=== PATIENT | female | born 1985 ===

== ENCOUNTER 2017-11-05 08:35 | Inpatient (IN) | payer BC ==
[2017-11-05] MEDS ORDERED: Penicillin G 5 Million Unit Vial IVPB ONE (20:30)
[2017-11-05] MEDS ORDERED: Lactated Ringer's 1,000 ML IV SCH (20:30)
--- NOTE | 2017-11-05 20:31 | OBADHP ---
Datetime: 11/05/2017 20:27 Admit Comment, IP Provider: at 40+weeks er fir inductuion of labor.c/o cts started in am, irrg, no vb, lof,+fm obhx primi pmh den_med pnv all nkda psh den soch de ve /-2 a/p at 40+wek in labor admit to l_d npo/ivf labs cont fabio and efm gbs prophy;axsis anticipate Pelvic Type - PN: Adequate Extremities - PN: Normal Abdomen - PN: Normal Back - PN: Normal Breast - PN: Normal Lungs - PN: Normal Heart - PN: Normal Thyroid - PN: Normal Neurologic - PN: Normal HEENT - PN: Normal General - PN: Normal FHR - Baseline A Provider: 120 Contraction Comments Provider: q1-4 IP Hx Assessment: The History has been Reviewed and is Current Vital Signs Provider: Reviewed; Within Normal Limits IP Chief Complaint: Uterine contractions NICHD Variability Prov Fetus A: Moderate 6-25bpm NICHD Accel Fetus A IP Provider: 15X15 FHR Category Provider Fetus A: Category I Dilatation, Provider: 2 Effacement, Provider: 80 Station, Provider: -2 Genitourinary Exam: Normal DTRs - PN: Normal EGA AdmitDate IP: 40.6 IP Adm Impression: Term, intrauterine ; Active labor IP Admit Plan: Admit to unit; Initiate labor protocol
[2017-11-05] MEDS ORDERED: Nalbuphine 20 mg/ml Inj (1 ml) IVP PRN (20:45)
[2017-11-05 21:06] LABS: BASO % 0.3 % (0.0-2.0); EOS % 0.2 % (0.0-4.0); HEMOGLOBIN 13.3 g/dL (11.0-16.0); LYMPH # 1.8 K/uL (1.0-4.3); MEAN CELL VOLUME 90.7 fL (81.0-99.0); MEAN CORPUSCULAR HEMOGLOBIN 31.2 pg (27.0-31.0); MEAN CORPUSCULAR HGB CONC 34.4 g/dL (33.0-37.0); MEAN PLATELET VOLUME 10.1 fL (7.2-11.7); MONO # 0.6 K/uL (0.0-0.8); MONO % 5.9 % (0.0-10.0); NEUT # 7.6 K/uL (1.8-7.0); NEUT % 75.6 % (50.0-75.0); NRBC % 0.1 % (0.0-2.0); RBC 4.25 Mil/uL (3.80-5.20); RED CELL DISTRIBUTION WIDTH 17.3 % (11.5-14.5); WHITE BLOOD COUNT 10.1 K/uL (4.8-10.8)
[2017-11-05 21:12] VITALS: BMI 23.6
[2017-11-05 21:49] LABS: HEPATITIS B SURFACE AG NEGATIVE (NEGATIVE); SQUAMOUS EPITHIAL 4 /hpf (0-5); URINE BACTERIA OCC (<OCC); URINE BILIRUBIN NEGATIVE (NEGATIVE); URINE BLOOD NEGATIVE (NEGATIVE); URINE CLARITY Hazy (Clear); URINE COLOR Straw (YELLOW); URINE GLUCOSE (UA) NORMAL (Normal); URINE LEUKOCYTE ESTERASE 2+ Leu/uL (Negative); URINE NITRATE NEGATIVE (NEGATIVE); URINE PROTEIN NEGATIVE (NEGATIVE); URINE UROBILINOGEN NORMAL mg/dL (0.2-1.0)
[2017-11-05 22:40] LABS: BLOOD UREA NITROGEN 15 mg/dL (7-17); GFR AFRICAN-AMERICAN > 60; GFR NON-AFRICAN AMERICAN > 60
[2017-11-05 22:41] LABS: ALBUMIN 3.6 g/dL (3.5-5.0); ALT/SGPT 32 U/L (9-52); AST/SGOT 29 U/L (14-36); CALCIUM 8.8 mg/dl (8.6-10.4)
[2017-11-05] MEDS ORDERED: Bupivacaine HCl 0.25% PF (10 ml) Inj ONE (23:25)
[2017-11-05] MEDS ORDERED: Bupivacaine HCl/FentaNYL Cit 100 ML EPI ONE (23:57)
[2017-11-06] MEDS: WATER IV SCH ×2 (00:21→04:24)
[2017-11-06] MEDS: DEXTROSE IV SCH ×2 (00:21→04:24)
[2017-11-06] MEDS: PENICILLIN POTASSIUM MU IV SCH ×2 (00:21→04:24)
--- NOTE | 2017-11-06 06:35 | OBPN ---
Datetime: 11/06/2017 06:32 IP Progress Impression: Normal progression of labor IP Procedures: Sterile Vag Exam FHR - Baseline A Provider: 130 IP Progress Note Comment: pt was seen at be side ve 9/100/0 anticipate NICHD Accel Fetus A IP Provider: 15X15 FHR Category Provider Fetus A: Category I NICHD Variability Prov Fetus A: Moderate 6-25bpm Dilatation, Provider: 9 Effacement, Provider: 100 Station, Provider: 0irrg Datetime: 11/05/2017 20:27 Contraction Comments Provider: q1-4 Vital Signs Provider: Reviewed; Within Normal Limits
[2017-11-06] MEDS ORDERED: Lidocaine 2% Inj (20ml) ONE (07:35)
--- NOTE | 2017-11-06 08:06 | OBDS ---
DELIVERY PERSONNEL Nurse Desk Top Publisher Certified: N/A Delivery Doctor: Amanda Bosch MD Scrub Nurse: N/Mel Hardwood Flooring Specialist: Reshma Singh RN Anesthesiologist: Rudi Hernández MD Circle Edger: N/Mel Resident: Paul MATERNAL INFORMATION Delivery Anesthesia: Epidural Medications in Delivery: Pitocin given after delivery of placenta. Estimated Blood Loss (ml): 200 Placenta Cultured: No Maternal Complications: None RN Comments: Phuong Cheng RN present at delivery. Father of baby and pt.'s mother present in labor room for delivery. Provider Comments: Uncomplicated Spontaneous vaginal delivery of a viable female infant with BW of and APGARS of 9 and 9. 2nd degree laceration repaired with chromic 2-0 under epidural with good flora sis. EBL- 200mls LABOR SUMMARY EDC: 10/30/2017 00:00 No. Babies in Womb: 0 Attempted: No Labor Anesthesia: Epidural LABOR INFORMATION Reason for Induction: Not Applicable; Other Reason for Induction Other: POST DATES Onset of Labor: 11/05/2017 18:00 Complete Dilatation: 11/06/2017 07:20 Cervical Ripening Agents: Cervidil Oxytocin: N/A Group B Beta Strep: Positive Antibiotics # of Doses: 3 Antibiotics Time of Last Dose: 4;30am Steroids Given: None Reason Steroids Not Administered: Not Applicable Other Reason Not Administered: N/A MEMBRANES Membranes Rupture Method: Artificial Rupture of Membranes: 11/06/2017 07:22 Length of Rupture (hrs): 0.32 Amniotic Fluid Color: Clear Amniotic Fluid Amount: Small Amniotic Fluid Odor: Normal STAGES OF LABOR Stage 1 hrs: 13 Stage 1 min: 20 Stage 2 hrs: 0 Stage 2 min: 21 Stage 3 hrs: 0 Stage 3 min: 5 Total Time in Labor hrs: 13 Total Time in Labor min: 46 VAGINAL DELIVERY Episiotomy: None Laceration Extension: Second Degree Laceration Type: Perineal Laceration Repair: Yes Laceration Repair Note: Repaired with 2-0 chromic under epidural anesthesia and with Good cosmesis. Initial Vag Sponge Count: 11 Final Vag Sponge Count: 11 Initial Vag Sharps Count: 1 Final Vag Sharps Count: 1 Sponge Count Correct: Yes; Vaginal Sweep Performed Sharps Count Correct: Yes BABY A INFORMATION Infant Delivery Date/Time: 11/06/2017 07:41 Method of Delivery: Vaginal Born in Route : No : N/A Forceps: N/A Vacuum Extraction: N/A Shoulder Dystocia : No SHOULDER DYSTOCIA BABY A Delivery Date/Time: 11/06/2017 07:41 PRESENTATION/POSITION BABY A Presentation: Cephalic Cephalic Presentation: Vertex Vertex Position: Right Occipital Posterior Breech Presentation: N/A PLACENTA INFORMATION BABY A Placenta Delivery Time : 11/06/2017 07:46 Placenta Method of Delivery: Spontaneous Placenta Status: Delivered SCORES BABY A Heart Rate 1 min: >100 bpm Resp Effort 1 min: Good Cry Reflex Irritability 1 min: Cough or Sneeze or Pulls Away Muscle Tone 1 min: Active Motion Color 1 min: Body Sunrise, Extremities Blue Resuscitation Effort 1 min: Tactile Stimulation SCORE 1 MIN: 9 Heart Rate 5 min: >100 bpm Resp Effort 5 min: Good Cry Reflex Irritability 5 min: Cough or Sneeze or Pulls Away Muscle Tone 5 min: Active Motion Color 5 min: Body Sunrise, Extremities Blue Resuscitation Effort 5 min: N/A SCORE 5 MIN: 9 INFORMATION BABY A Gestational Age at Delivery: 40.6 Gestational Status: Term Infant Outcome : Liveborn Condition : Stable Sex: Female IDENTIFICATION/MEDS BABY A ID Band Number: [id number] ID Band Location: Left Leg; Left Arm Sensor Applied: Yes Sensor Number: [id number] Sensor Location : Cord Clamp WEIGHT/LENGTH BABY A Infant Birthweight (gms): 2905 Infant Weight (lb): 6 Infant Weight (oz): 6 Infant Length Inches: 19.25 Length cms: 48.9 CORD INFORMATION BABY A No. Cord Vessels: 3 Nuchal Cord : N/A Nuchal Cord Other: N/A True Knot: N/A Infant Cord pH Baby Arterial: N/A Cord pH Baby Venous: N/A Cord Blood Taken: Yes Banking/Donate Info: N/A Infant Suction: Mouth; Nose ASSESSMENT BABY A Complications: None Physical Findings at Delivery: Within Normal Limits Infant Respirations: Appears Normal Production Tech/ALS Called : No Care By: Phuong Cheng RN Transferred To: Remains with Mother
[2017-11-06] MEDS ORDERED: Oxytocin 30 UNIT 30 UNITS/500 ML BAG IV SCH (09:15)
[2017-11-07 00:17] VITALS: O2SAT 98
[2017-11-07 07:54] LABS: BASO % 0.3 % (0.0-2.0); EOS # 0.1 K/uL (0.0-0.7); EOS % 0.7 % (0.0-4.0); HEMOGLOBIN 12.2 g/dL (11.0-16.0); LYMPH # 2.8 K/uL (1.0-4.3); LYMPH % 21.9 % (20.0-40.0); MEAN CELL VOLUME 91.5 fL (81.0-99.0); MEAN CORPUSCULAR HEMOGLOBIN 31.3 pg (27.0-31.0); MEAN CORPUSCULAR HGB CONC 34.2 g/dL (33.0-37.0); MEAN PLATELET VOLUME 9.6 fL (7.2-11.7); MONO # 0.6 K/uL (0.0-0.8); MONO % 4.8 % (0.0-10.0); NEUT # 9.2 K/uL (1.8-7.0); NEUT % 72.3 % (50.0-75.0); RBC 3.89 Mil/uL (3.80-5.20); RED CELL DISTRIBUTION WIDTH 17.7 % (11.5-14.5); WHITE BLOOD COUNT 12.7 K/uL (4.8-10.8)
[2017-11-07 08:41] VITALS: RESP 18; TEMP 98.1
--- NOTE | 2017-11-07 10:14 | OBPPN ---
Datetime: 11/07/2017 10:10 PP Pain Prov: Within normal limits PP Nausea Prov: Denies PP Flatus Prov: Yes PP Breasts Prov: Normal PP Heart Prov: Normal PP Lungs Prov: Normal PP Abdomen/Uterus Prov: Normal PP Lochia Prov: Normal PP Vulva/Perineum Prov: Normal PP CVA Tenderness Prov: Normal PP Extremities Prov: Normal PP Comments Phys Exam Prov: Abd: Soft, NT, BS - present UT- Firm PP Impression Prov: Normal progression PP Plan Prov: Continue present management PP Progress Note Prov: S/P , PPD #1 Clinically Stable. Plan: Continue care. Vital Signs Provider PP: Reviewed
[2017-11-08 08:30] VITALS: BP 101/61; PULSE 73
--- NOTE | 2017-11-08 09:37 | OBPPN ---
Datetime: 11/08/2017 09:30 PP Pain Prov: Within normal limits PP Nausea Prov: Denies PP Flatus Prov: Yes PP BM Prov: No PP Breasts Prov: Normal PP Heart Prov: Normal PP Lungs Prov: Normal PP Abdomen/Uterus Prov: Normal PP Lochia Prov: Normal PP Vulva/Perineum Prov: Not Done PP CVA Tenderness Prov: Normal PP Extremities Prov: Normal PP C/S Incision Prov: Not Applicable PP Progress Prov: Normal PP Comments Phys Exam Prov: Abdomen: (+) BS. soft. non distended. fundus firm, mobile, non tender, 1 8 weeks. Minimal lochia rubra Extremities: no calf tenderness All other systems reviewed and are negative PP Impression Prov: Normal progression PP Plan Prov: Discharge PP Progress Note Prov: Patient received in bed, room 452. Denies nausae, vomiting,; ambulating and voiding without difficulty. Not yet had BM; not concerned. Breast- and bottlefeeding P.E.: as above Petite, in NAD. Awake, alert, oriented to time, person and place. 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 Rh(+) Assessment: PPD#2, 32 y.o. P0, S/P . Afebrile, vital signs stable. Unsure re: contraception; options available discussed briefly. Clinically stable. Plan: 1) discharge home 2) See full discharge instructions Vital Signs Provider PP: Reviewed; Within Normal Limits
--- NOTE | 2017-11-08 09:40 | OBDCSUM ---
Datetime: 11/08/2017 09:36 Discharged to, Provider: Home Follow up at, Provider: [facility] Disch Instr Activity: Normal activity; May be up to bathroom; May be up for meals; May Shower Disch Instr Diet: Regular Discharge Diagnosis, Provider: Term Delivered Discharge Time: 11/08/2017 15:02 Follow up in weeks, Provider: 6 weeks Contraception discussed, Prov: Yes Disch Activity Restrictions: No sexual activity; Nothing in vagina - [place], tampons, douche Discharge Diagnosis Prov Other: Contraception counseling Contraception after Delivery: Undecided
== END 2017-11-08 16:15 | disposition home or self-care (01) | DRG 775 ==
LOC: C.4D 20:00 → C.4M 11-06 10:16
PROVIDERS: ADMIT Obstetrics & Gynecology; ATTEND Obstetrics & Gynecology
PROC: 10E0XZZ Delivery of Products of Conception, External Approach (ICD-10-PCS; principal; 2017-11-06)
PROC: 0KQM0ZZ Repair Perineum Muscle, Open Approach (ICD-10-PCS; 2017-11-06)
PROC: 3E0P7VZ Introduction of Hormone into Female Reproductive, Via Natural or Artificial Opening (ICD-10-PCS; 2017-11-06)
PROC: 10907ZC Drainage of Amniotic Fluid, Therapeutic from Products of Conception, Via Natural or Artificial Opening (ICD-10-PCS; 2017-11-06)
DX: O48.0 Post-term pregnancy (principal); O70.1 Second degree perineal laceration during delivery; Z3A.40 40 weeks gestation of pregnancy; O99.824 Streptococcus B carrier state complicating childbirth; Z37.0 Single live birth

== ENCOUNTER 2019-03-28 10:27 | Outpatient (CLI) | payer SELFPAY | END 2019-03-28 10:28 | disposition home or self-care (01) | LOC: C.LAB 10:27 | DX: Z34.81 Encounter for supervision of other normal pregnancy, first trimester (principal) ==